=== PATIENT | female | born 1970 | race African-American/Black ===

== ENCOUNTER 2019-01-28 17:28 | Emergency (ER) | payer OTHER ==
[2019-01-28] MEDS ORDERED: KETOROLAC TROMETHAMINE 60 MG/2 ML VIAL IM ONE (17:36)
--- NOTE | 2019-01-28 17:37 | PDOC ---
Rapid Medical Evaluation Time Seen by Provider: 01/28/19 17:34 Medical Evaluation: Allergies Allergy/AdvReac Type Severity Reaction Status Date / Time No Known Drug Allergies Allergy Verified 01/28/19 17:35 01/28/19 17:35 HPI: Back pain x 1 year increasing over the last 2 months PE: No gross deficits ORDERS: Torodol Discharge Disposition - Diagnosis Back pain - Referrals - Patient Instructions - Post Discharge Activity
[2019-01-28 17:40] VITALS: BP 116/84; PULSE 82; TEMP 98.1; BMI 27.3
[2019-01-28] MEDS ORDERED: KETOROLAC TROMETHAMINE 60 MG/2 ML VIAL ONE (17:44)
--- NOTE | 2019-01-28 17:45 | PDOC ---
History of Present Illness - General Chief Complaint: Chronic pain Stated Complaint: BACK PAIN Time Seen by Provider: 01/28/19 17:34 - History of Present Illness Initial Comments: 01/28/19 17:44 CHIEF COMPLAINT: back pain HISTORY OF PRESENT ILLNESS: 48 yo F with hx of low back pain presents to [facility] with worsening back pain x "1 year." Patient states she had an MRI done in 2014 and was told she needed surgery "but I put it off because I'm scared of surgery." She reports that the pain is intermittent and when occurs, begins in the lower back and shoots around to her left hip and leg. Denies loss of bowel or bladder function. No recent travel or sick contacts. PAST MEDICAL HISTORY: Denies past medical history FAMILY HISTORY: Denies SOCIAL HISTORY: Denies tobacco, alcohol, illicit drug use. SURGICAL HISTORY: Denies ALLERGIES: No known drug allergies REVIEW OF SYSTEMS General/Constitutional: Denies fever or chills. Denies weakness, weight change. HEENT: Denies change in vision. Denies ear pain or discharge. Denies sore throat. Cardiovascular: Denies chest pain or shortness of breath. Respiratory: Denies cough, wheezing, or hemoptysis. Gastrointestinal: Denies nausea, vomiting, diarrhea or constipation. Denies rectal bleeding. Genitourinary: Denies dysuria, frequency, or change in urination. Musculoskeletal: Denies joint or muscle swelling or pain. Denies neck or back pain. Skin and breasts: Denies rash or easy bruising. Neurologic: Denies headache, vertigo, loss of consciousness, or loss of sensation. PHYSICAL EXAM General Appearance: Well-appearing, appropriately dressed. No apparent distress , no intoxication. HEENT: EOMI, PERRLA, normal ENT inspection, normal voice, TMs normal, pharynx normal. No conjunctival pallor. No photophobia, scleral icterus. Neck: Supple. Trachea midline. No tenderness, rigidity, carotid bruit, stridor , lymphadenopathy, or thyromegaly. Respiratory/Chest: Lungs CTAB. No shortness of breath, chest tenderness, respiratory distress, accessory muscle use. No crackles, rales, rhonchi, stridor , wheezing, dullness Cardiovascular: RRR. S1, S2. No JVD, murmur, bradycardia, tachycardia. Vascular Pulses: Dorsalis-Pedis (R): 2+, Dorsalis-Pedis (L): 2+ Gastrointestinal/Abdominal: Normal bowel sounds. Abdomen soft, non-distended. No tenderness or rebound tenderness. No organomegaly, pulsatile mass, guarding , hernia, hepatomegaly, splenomegaly. Lymphatic: No adenopathy, tenderness. Musculoskeletal/Extremities: Normal inspection. FROM of all extremities, normal capillary refill. Pelvis Stable. No CVA tenderness. No tenderness to extremities, pedal edema, swelling, erythema or deformity. Integumentary: Appropriate color, dry, warm. 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 Fully oriented, alert. Appropriate mood/affect. Motor strength 5/5. No appreciable EOM palsy, facial droop or sensory deficit. 01/28/19 18:03 Past History - Past Medical History Allergies/Adverse Reactions: Allergies Allergy/AdvReac Type Severity Reaction Status Date / Time No Known Drug Allergies Allergy Verified 01/28/19 17:35 Home Medications: Ambulatory Orders Meloxicam [Mobic -] 15 mg PO DAILY 11/25/13 Diclofenac Sodium 75 mg PO BID #30 tablet. 01/28/19 oxyCODONE SR [Oxycontin] mg PO ONCE 01/28/19 Anemia: Yes Asthma: No Cancer: No Cardiac Disorders: No CVA: No COPD: No CHF: No Dementia: No Diabetes: No GI Disorders: No Disorders: No HTN: No Hypercholesterolemia: No Liver Disease: No Seizures: No Thyroid Disease: No Other medical history: chronic back pain - Surgical History Abdominal Surgery: No Appendectomy: No Cardiac Surgery: No Cholecystectomy: No Lung Surgery: No Neurologic Surgery: No Orthopedic Surgery: No - Suicide/Smoking/Psychosocial Hx Smoking History: Unknown if ever smoked Have you smoked in the past 12 months: No If you are a former smoker, when did you quit?: 11/2010 Hx Alcohol Use: No Drug/Substance Use Hx: No Substance Use Type: Alcohol Hx Substance Use Treatment: No *Physical Exam - Vital Signs Last Vital Signs Temp Pulse Resp BP Pulse Ox 98.1 F 82 18 116/84 99 01/28/19 17:38 01/28/19 17:38 01/28/19 17:38 01/28/19 17:38 01/28/19 17:38 Medical Decision Making - Medical Decision Making 01/28/19 18:14 8 yo F with hx of low back pain [facility] with worsening back pain x "1 year." -toradol IM NSAIDS patient states she is in the process of getting another MRI with ortho in order to proceed with surgery *DC/Admit/Observation/Transfer Diagnosis at time of Disposition: Back pain Qualifiers: Back pain location: low back pain Chronicity: chronic Back pain laterality: midline Sciatica presence: with sciatica Sciatica laterality: sciatica of left side Qualified Code(s): M54.42 - Lumbago with sciatica, left side; G89.29 - Other chronic pain - Discharge Dispostion Disposition: HOME Condition at time of disposition: Stable Decision to Admit order: No - Prescriptions Prescriptions: Diclofenac Sodium 75 mg PO BID #30 tablet.dr - Referrals Referrals: Tyra Encarnacion MD [Primary Care Provider] - - Patient Instructions Printed Discharge Instructions: DI for Back Pain With Sciatica - Post Discharge Activity
== END 2019-01-28 18:29 | disposition home or self-care (01) ==
LOC: JERFT 17:28
PROC: 3E0233Z Introduction of Anti-inflammatory into Muscle, Percutaneous Approach (ICD-10-PCS; principal; 2019-01-28)
DX: M54.42 Lumbago with sciatica, left side (principal); G89.29 Other chronic pain
CPT/HCPCS: 99282-25

== ENCOUNTER 2020-11-07 17:03 | Emergency (ER) | payer OTHER ==
[2020-11-07 17:10] VITALS: BP 139/82; PULSE 120; TEMP 98.7; BMI 28.0
[2020-11-07] MEDS ORDERED: morphine SULFATE 4 MG/ML VIAL IM PRN (18:05)
[2020-11-07] MEDS ORDERED: morphine SULFATE 4 MG/ML VIAL ONE (19:25)
[2020-11-07] MEDS ORDERED: KETOROLAC TROMETHAMINE 30 MG/1 ML VIAL IM ONE (20:06)
[2020-11-07] MEDS ORDERED: KETOROLAC TROMETHAMINE 30 MG/1 ML VIAL ONE (20:08)
[2020-11-07 20:50] LABS: PH,URINE 5.5 (5.0-8.0); URINE APPEARANCE CLEAR; URINE BILIRUBIN NEGATIVE (NEGATIVE); URINE COLOR YELLOW; URINE GLUCOSE (UA) NEGATIVE (NEGATIVE); URINE KETONE NEGATIVE (NEGATIVE); URINE LEUK ESTERASE NEGATIVE (NEGATIVE); URINE NITRITE NEGATIVE (NEGATIVE); URINE PROTEIN NEGATIVE (NEGATIVE); URINE UROBILINOGEN 0.2 mg/dL (0.2-1.0)
== END 2020-11-07 21:43 | disposition home or self-care (01) ==
LOC: JER 17:03
PROC: 3E0233Z Introduction of Anti-inflammatory into Muscle, Percutaneous Approach (ICD-10-PCS; principal; 2020-11-07)
DX: M54.41 Lumbago with sciatica, right side (principal)
CPT/HCPCS: 81003; 99284-25

== ENCOUNTER 2020-12-27 23:19 | Observation (INO) | payer OTHER ==
[2020-12-27 23:24] VITALS: BMI 27.6
[2020-12-27] MEDS ORDERED: SODIUM CHLORIDE 0.9% 500 ML INFUS.BAG IV ONE (23:40)
[2020-12-27 23:52] LABS: BASO % 0.7 % (0-2.0); EOS % 1.6 % (0-4.5); HEMATOCRIT 37.6 % (32.4-45.2); HEMOGLOBIN 12.6 GM/dL (10.7-15.3); LYMPH % 30.3 % (8-40); MCH 26.5 pg (25.7-33.7); MCHC 33.5 g/dl (32.0-36.0); MEAN CELL VOLUME 79.2 fl (80-96); MONO % 7.6 % (3.8-10.2); NEUT % 59.8 % (42.8-82.8); PLATELET COUNT 311 10^3/uL (134-434); RBC 4.74 M/mm3 (3.60-5.2); RDW 13.4 % (11.6-15.6); WHITE BLOOD COUNT 7.6 K/mm3 (4.0-10.0)
[2020-12-28 00:03] LABS: INR 1.08 (0.83-1.09); PROTHROMBIN TIME (PATIENT) 13.2 SEC (9.7-13.0)
[2020-12-28 00:16] LABS: CHLORIDE 112 mmol/L (98-107); SODIUM 145 mmol/L (136-145)
[2020-12-28 00:19] LABS: ANION GAP 9 MMOL/L (8-16); CALCIUM 9.8 mg/dL (8.5-10.1); CO2 24 mmol/L (21-32); GLUCOSE,RANDOM 129 mg/dL (74-106)
[2020-12-28 00:20] LABS: ALBUMIN 3.3 g/dl (3.4-5.0); BLOOD UREA NITROGEN 10.5 mg/dL (7-18)
[2020-12-28 00:22] LABS: CREATININE 0.6 mg/dL (0.55-1.3); SGPT/ALT 36 U/L (13-61)
[2020-12-28 00:23] LABS: SGOT/AST 24 U/L (15-37)
[2020-12-28 00:24] LABS: BILIRUBIN,TOTAL 0.2 mg/dL (0.2-1); TOT PROT 6.8 g/dl (6.4-8.2)
[2020-12-28 00:25] LABS: ALK PHOS 144 U/L (45-117)
[2020-12-28 01:36] LABS: URINE APPEARANCE CLEAR; URINE BILIRUBIN NEGATIVE (NEGATIVE); URINE COLOR YELLOW; URINE GLUCOSE (UA) NEGATIVE (NEGATIVE); URINE KETONE NEGATIVE (NEGATIVE); URINE LEUK ESTERASE NEGATIVE (NEGATIVE); URINE NITRITE NEGATIVE (NEGATIVE); URINE PROTEIN NEGATIVE (NEGATIVE); URINE UROBILINOGEN 0.2 mg/dL (0.2-1.0)
[2020-12-28 04:27] LABS: ERYTHROCYTE SEDIMENTATION RATE 8 mm/hr (0-30)
[2020-12-28] MEDS ORDERED: PROPYLTHIOURACIL 50 MG TABLET (UD) PO SCH (06:00)
[2020-12-28] MEDS: GABAPENTIN 400 MG CAPSULE PO SCH ×3 (06:23→21:33)
[2020-12-28] MEDS ORDERED: GABAPENTIN 100 MG CAPSULE ONE (06:23)
[2020-12-28 08:19] LABS: BASO % 0.9 % (0-2.0); EOS % 1.9 % (0-4.5); HEMATOCRIT 34.9 % (32.4-45.2); HEMOGLOBIN 11.5 GM/dL (10.7-15.3); LYMPH % 41.2 % (8-40); MCH 26.3 pg (25.7-33.7); MCHC 32.9 g/dl (32.0-36.0); MEAN CELL VOLUME 79.7 fl (80-96); MEAN PLT VOLUME 8.5 fl (7.5-11.1); PLATELET COUNT 306 10^3/uL (134-434); RBC 4.38 M/mm3 (3.60-5.2); RDW 13.5 % (11.6-15.6); WHITE BLOOD COUNT 5.7 K/mm3 (4.0-10.0)
[2020-12-28 08:39] LABS: CHLORIDE 113 mmol/L (98-107); SODIUM 144 mmol/L (136-145)
[2020-12-28 08:45] LABS: ALBUMIN 3.1 g/dl (3.4-5.0); CALCIUM 10.1 mg/dL (8.5-10.1)
[2020-12-28 08:46] LABS: ANION GAP 7 MMOL/L (8-16); CO2 24 mmol/L (21-32); GLUCOSE,RANDOM 108 mg/dL (74-106); MAGNESIUM 1.8 mg/dL (1.8-2.4)
[2020-12-28 08:48] LABS: SGOT/AST 36 U/L (15-37); SGPT/ALT 37 U/L (13-61)
[2020-12-28 08:49] LABS: BILIRUBIN,TOTAL 0.4 mg/dL (0.2-1); CHOLESTEROL 155 mg/dL (50-200); CREATININE 0.4 mg/dL (0.55-1.3); PHOSPHOROUS 4.7 mg/dL (2.5-4.9); TOT PROT 6.4 g/dl (6.4-8.2); TRIGLYCERIDES 103 mg/dL (0-150)
[2020-12-28 08:50] LABS: ALK PHOS 129 U/L (45-117); HDL CHOLESTEROL 49 mg/dL (40-60); LDL CHOLESTEROL (ONLY SJRH) 82 mg/dL (5-100)
[2020-12-28] MEDS: METHIMAZOLE 10 MG TABLET PO SCH ×3 (10:13→21:33)
[2020-12-28] MEDS: ENOXAPARIN NA (PORCINE) 40 MG/0.4 ML DISP.SYRIN SQ SCH (10:14)
[2020-12-28] MEDS ORDERED: PT OWN MED DRAWER 7, Y5N ONE ×2 (13:39→21:24)
[2020-12-28] MEDS ORDERED: METHIMAZOLE 10 MG TABLET PO SCH (22:27)
[2020-12-29] MEDS: METHIMAZOLE PO SCH ×3 (01:53→14:09)
[2020-12-29] MEDS: GABAPENTIN 400 MG CAPSULE PO SCH ×2 (06:09→14:09)
[2020-12-29] MEDS ORDERED: PT OWN MED DRAWER 7, Y5N ONE ×2 (06:38→09:41)
[2020-12-29 07:10] LABS: BASO % 0.5 % (0-2.0); EOS % 2.1 % (0-4.5); HEMATOCRIT 33.5 % (32.4-45.2); HEMOGLOBIN 11.2 GM/dL (10.7-15.3); LYMPH % 32.2 % (8-40); MCH 26.4 pg (25.7-33.7); MCHC 33.5 g/dl (32.0-36.0); MEAN PLT VOLUME 8.1 fl (7.5-11.1); MONO % 8.6 % (3.8-10.2); NEUT % 56.6 % (42.8-82.8); PLATELET COUNT 277 10^3/uL (134-434); RBC 4.24 M/mm3 (3.60-5.2); RDW 13.7 % (11.6-15.6); WHITE BLOOD COUNT 6.3 K/mm3 (4.0-10.0)
[2020-12-29 07:33] LABS: CALCIUM 9.9 mg/dL (8.5-10.1)
[2020-12-29 07:34] LABS: BLOOD UREA NITROGEN 9.4 mg/dL (7-18); MAGNESIUM 1.7 mg/dL (1.8-2.4)
[2020-12-29 07:37] LABS: CREATININE 0.5 mg/dL (0.55-1.3); PHOSPHOROUS 4.6 mg/dL (2.5-4.9)
[2020-12-29 07:38] LABS: BILIRUBIN,TOTAL 0.3 mg/dL (0.2-1); TOT PROT 6.4 g/dl (6.4-8.2)
[2020-12-29] MEDS ORDERED: MAGNESIUM SULF 50% (8.12 MEQ/2 ML-1 GM VIAL) IVPB ONE (08:20)
[2020-12-29 09:59] VITALS: TEMP 98.4
[2020-12-29] MEDS: ENOXAPARIN NA (PORCINE) 40 MG/0.4 ML DISP.SYRIN SQ SCH (10:00)
[2020-12-29 16:38] VITALS: BP 133/77; PULSE 92
== END 2020-12-29 17:51 | disposition home or self-care (01) ==
LOC: JER 23:19 → INTOOBSV 12-28 00:50 → JERBED 12-28 00:50 → UNDOADMOB 12-28 00:50 → J4S 12-28 09:46 → JERBED 12-28 09:46 → J4S 12-28 11:11
PROVIDERS: ADMIT Hospitalist; ATTEND Internal Medicine
PROC: 3E023GC Introduction of Other Therapeutic Substance into Muscle, Percutaneous Approach (ICD-10-PCS; principal; 2020-12-28)
PROC: 3E033GC Introduction of Other Therapeutic Substance into Peripheral Vein, Percutaneous Approach (ICD-10-PCS; 2020-12-28)
PROC: 3E0337Z Introduction of Electrolytic and Water Balance Substance into Peripheral Vein, Percutaneous Approach (ICD-10-PCS; 2020-12-28)
DX: E05.90 Thyrotoxicosis, unspecified without thyrotoxic crisis or storm (principal); R94.31 Abnormal electrocardiogram [ECG] [EKG]; Z91.012 Allergy to eggs; G89.29 Other chronic pain; Z87.891 Personal history of nicotine dependence; K64.8 Other hemorrhoids; M54.9 Dorsalgia, unspecified; M54.41 Lumbago with sciatica, right side
CPT/HCPCS: 36415; 71045-TC-FY; 80053; 80061; 81003; 82550; 83721; 83735; 84100; 84439; 84443; 84445; 84479; 84484; 85025; 85610; 85651; 86140; 87086; 93005; 93010; 93306-TC; 96372; 96374; 99285-25; C9803; G0378; U0003; U0005